=== PATIENT | male | born 1970 | race Caucasian/White ===

== ENCOUNTER 2017-09-07 03:52 | Emergency (ER) | payer MEDICAID ==
[~2017-09-07] VITALS: Ht 182.9 cm; Wt 81.6 kg
[2017-09-07 03:54] VITALS: BP_SYST 152
[2017-09-07 04:08] VITALS: BP_SYST 152
== END 2017-09-07 04:08 ==
LOC: SED 03:52
DX: Z22.322 Carrier or suspected carrier of Methicillin resistant Staphylococcus aureus (principal); Z88.5 Allergy status to narcotic agent; Z88.1 Allergy status to other antibiotic agents; Z90.89 Acquired absence of other organs
CPT/HCPCS: 99283

== ENCOUNTER 2017-09-13 14:38 | Emergency (ER) | payer MEDICAID ==
[~2017-09-13] VITALS: Ht 182.9 cm; Wt 75.7 kg
[2017-09-13 15:00] VITALS: BP_SYST 121
[2017-09-13] MEDS ORDERED: LIDOCAINE/EPI 2% 1:100000 20 ML VIAL INJ ONE (16:30)
[2017-09-13] MEDS ORDERED: CLINDAMYCIN 600 mg/50mL D5W 50 ML IV ONE (16:30)
[2017-09-13] MEDS ORDERED: DIPH-TET-PERTUS Vaccine 0.5 ML VIAL (ADACEL) I.M. ONE (16:45)
[2017-09-13 16:54] LABS: BASOPHILS # (AUTO) 0.1 K/uL (0.0-0.2); BASOPHILS % (AUTO) 1.1 % (0.0-2.0); EOSINOPHILS # (AUTO) 0.5 K/uL (0.0-0.4); HEMOGLOBIN 12.6 g/dL (14.0-18.0); LYMPHOCYTES # (AUTO) 1.8 K/uL (1.0-5.5); LYMPHOCYTES % (AUTO) 20.4 % (20.5-51.5); MEAN CORPUSCULAR HEMOGLOBIN 32 pg (27-31); MEAN CORPUSCULAR HGB CONC 34 % (32-36); MEAN CORPUSCULAR VOLUME 93 fL (79.0-98.0); MONOCYTES # (AUTO) 1.1 K/uL (0.0-1.0); NEUTROPHILS # (AUTO) 5.6 K/uL (1.8-7.7); NEUTROPHILS % (AUTO) 60.5 % (40.0-70.0); PLATELET COUNT (AUTO) 497 K/uL (130-430); RED BLOOD CELL COUNT(AUTO) 3.98 MIL/uL (4.2-6.2); WHITE BLOOD COUNT (AUTO) 9.1 K/uL (4.8-10.8)
[2017-09-13] MEDS ORDERED: MORPHINE 4 MG/ML INJ. SYRINGE ONE (17:00)
[2017-09-13] MEDS ORDERED: DIPHENHYDRAMINE INJ 50 MG/ML VIAL ONE (17:01)
[2017-09-13 17:09] LABS: CALCIUM 8.4 mg/dL (8.4-11.0); CREATININE 0.81 mg/dL (0.55-1.30); POTASSIUM 3.9 mmol/L (3.5-5.1)
[2017-09-13] MEDS ORDERED: MORPHINE 4 MG/ML INJ. SYRINGE IVP ONE (17:30)
[2017-09-13] MEDS ORDERED: DIPHENHYDRAMINE INJ 50 MG/ML VIAL IVP ONE (17:30)
[2017-09-13 17:45] VITALS: BP_SYST 124
== END 2017-09-13 17:45 | disposition home or self-care (01) ==
LOC: SED 14:38
DX: L02.413 Cutaneous abscess of right upper limb (principal); F17.210 Nicotine dependence, cigarettes, uncomplicated; R03.0 Elevated blood-pressure reading, without diagnosis of hypertension; Z71.6 Tobacco abuse counseling; Z86.14 Personal history of Methicillin resistant Staphylococcus aureus infection; Z88.5 Allergy status to narcotic agent; Z88.1 Allergy status to other antibiotic agents
CPT/HCPCS: 36415; 73090; 80048; 83605; 85025; 87040; 90471; 90715; 96365; 96375; 99285; J1200; J2270; J3490

== ENCOUNTER 2019-05-19 20:27 | Emergency (ER) | payer MEDICAID ==
[~2019-05-19] VITALS: Ht 182.9 cm; Wt 83.9 kg
[2019-05-19 20:40] VITALS: BP_SYST 124
--- NOTE | 2019-05-19 21:29 | NUR ---
Patient to ER bed Goins 2 to gown for evaluation. Side rails up.
--- NOTE | 2019-05-19 21:38 | NUR ---
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 No other complaints and or injuries noted VSS no s/s of acute distress Resting on hallway chair with [employer] Caller bedside
--- NOTE | 2019-05-19 21:54 | NUR ---
Dr. Herzog bedside for Pt eval
[2019-05-19 22:13] VITALS: BP_SYST 132
--- NOTE | 2019-05-19 22:13 | NUR ---
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 ER MD discussed with patient the results and treatment provided. Patient in stable condition. ID arm band removed. Patient educated on pain management and to follow up with PMD. Pain Scale 0/10 Opportunity for questions provided and answered.
== END 2019-05-19 22:13 ==
LOC: SED 20:27
DX: Z02.89 Encounter for other administrative examinations (principal); L03.90 Cellulitis, unspecified; R56.9 Unspecified convulsions; Z86.14 Personal history of Methicillin resistant Staphylococcus aureus infection; Z88.1 Allergy status to other antibiotic agents; Z79.891 Long term (current) use of opiate analgesic
CPT/HCPCS: 99283